=== PATIENT | female | born 1975 | race Caucasian/White ===

== ENCOUNTER 2018-06-13 13:42 | Emergency (ER) | payer SELFPAY ==
[2018-06-13] MEDS ORDERED: SODIUM CHLORIDE 1,000 ML IV SCH (14:00)
[2018-06-13 14:01] VITALS: PULSE 82
[2018-06-13 14:02] VITALS: BP 142/86; TEMP 98; BMI 28.6
[2018-06-13 14:39] LABS: BASO % 0.8 % (0-2.0); EOS % 3.1 % (0-4.5); HEMATOCRIT 40.3 % (32.4-45.2); HEMOGLOBIN 13.8 GM/dL (10.7-15.3); LYMPH % 26.6 % (8-40); MCH 29.3 pg (25.7-33.7); MCHC 34.1 g/dl (32.0-36.0); MEAN CELL VOLUME 85.8 fl (80-96); MEAN PLT VOLUME 8.6 fl (7.5-11.1); MONO % 6.3 % (3.8-10.2); NEUT % 63.2 % (42.8-82.8); PLATELET COUNT 277 K/MM3 (134-434); RDW 14.3 % (11.6-15.6); WHITE BLOOD COUNT 6.4 K/mm3 (4.0-10.0)
[2018-06-13 15:16] LABS: ALBUMIN 3.8 g/dl (3.4-5.0); ALK PHOS 140 U/L (45-117); ANION GAP 6 MMOL/L (8-16); BILIRUBIN,TOTAL 0.4 mg/dL (0.2-1); BLOOD UREA NITROGEN 9 mg/dL (7-18); CALCIUM 8.1 mg/dL (8.5-10.1); CHLORIDE 106 mmol/L (98-107); CO2 28 mmol/L (21-32); CREATININE 0.7 mg/dL (0.55-1.3); GLUCOSE,RANDOM 93 mg/dL (74-106); SGOT/AST 32 U/L (15-37); SGPT/ALT 43 U/L (13-61); SODIUM 141 mmol/L (136-145); TOT PROT 7.1 g/dl (6.4-8.2)
--- NOTE | 2018-06-13 16:11 | PDOC ---
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 She reports feeling like she is unable to respond to people, although she can hear them. She has mild nausea. She has had symptoms like this several times in the past but has not yet had a workup for them. She denies headache, chest pain, shortness of breath, or any other symptoms. Of note, the patient reports being under stress and sleeping very little because her child who is suffering from night terrors. REVIEW OF SYSTEMS: GENERAL/CONSTITUTIONAL: No fever or chills. No weakness. No weight change. HEAD, EYES, EARS, NOSE AND THROAT: No change in vision. No ear pain or discharge. No sore throat. CARDIOVASCULAR: No chest pain or palpitations. RESPIRATORY: No cough, wheezing, or shortness of breath. GASTROINTESTINAL: Nausea. No vomiting, diarrhea or constipation. GENITOURINARY: No dysuria, frequency, or change in urination. MUSCULOSKELETAL: No joint or muscle swelling or pain. No neck or back pain. SKIN: No rash or easy bruising. NEUROLOGIC: No headache, vertigo, loss of consciousness, or loss of sensation. PSYCHIATRIC: No depression or anxiety. ENDOCRINE: No increased thirst. No abnormal weight change. HEMATOLOGIC/LYMPHATIC: No anemia, easy bleeding, or history of blood clots. ALLERGIC/IMMUNOLOGIC: No hives or skin allergy. No latex allergy. PHYSICAL EXAM: GENERAL: The patient is awake, alert, and fully oriented, in no acute distress. HEAD: Normal with no signs of trauma. ENT: Pupils equal, round and reactive to light, extraocular movements intact, sclera anicteric, conjunctiva clear. Neck supple. LUNGS: Clear to auscultation bilaterally. Normal excursion. No respiratory distress or use of accessory muscles. CV: RRR, S1/S2, no MRG. Cap refill < 2 sec. ABDOMEN: Soft, non-distended, non-tender. EXTREMITIES: Normal range of motion, no edema. NEUROLOGICAL: Normal speech, normal gait. CN II-XII grossly intact. PSYCH: Normal mood, normal affect. SKIN: Warm, dry, normal turgor, no rashes or lesions noted. Past History - Past Medical History Allergies/Adverse Reactions: Allergies Allergy/AdvReac Type Severity Reaction Status Date / Time No Known Allergies Allergy Verified 06/13/18 13:54 Home Medications: Ambulatory Orders Levothyroxine Sodium [Synthroid] 137 mcg PO DAILY 06/13/18 COPD: No CHF: No HTN: Yes Thyroid Disease: Yes (hypothyroid) - Suicide/Smoking/Psychosocial Hx Smoking History: Never smoked Have you smoked in the past 12 months: No Information on smoking cessation initiated: No Hx Alcohol Use: No Drug/Substance Use Hx: No Substance Use Type: None *Physical Exam - Vital Signs Last Vital Signs Temp Pulse Resp BP Pulse Ox 98.0 F 82 16 142/86 100 06/13/18 13:42 06/13/18 13:59 06/13/18 13:42 06/13/18 13:42 06/13/18 13:59 ED Treatment Course - LABORATORY CBC & Chemistry Diagram: 06/13/18 14:05 06/13/18 14:05 - ADDITIONAL ORDERS Additional order review: Laboratory Results 06/13/18 06/13/18 06/13/18 14:08 14:08 14:05 Sodium 141 Potassium 4.0 Chloride 106 Carbon Dioxide 28 Anion Gap 6 L BUN 9 Creatinine 0.7 Creat Clearance w eGFR > 60 Random Glucose 93 Calcium 8.1 L Total Bilirubin 0.4 AST 32 ALT 43 Alkaline Phosphatase 140 H Troponin I Cancelled < 0.02 Total Protein 7.1 Albumin 3.8 TSH 2.23 Free T4 1.06 Serum , Qual Negative 06/13/18 14:05 RBC 4.70 MCV 85.8 MCHC 34.1 RDW 14.3 MPV 8.6 Neutrophils % 63.2 Lymphocytes % 26.6 Monocytes % 6.3 Eosinophils % 3.1 Basophils % 0.8 - RADIOLOGY Radiology Studies Ordered: Category Date Time Status HEAD CT WITHOUT CONTRAST [CT] Stat CT Scan 06/13/18 13:58 Completed BRAIN MRI W/O CONTRAST [MRI] Stat MRI 06/13/18 15:03 Completed Medical Decision Making - Medical Decision Making 06/13/18 16:08 A/P: 43-year-old female with nonspecific symptoms of lightheadedness, difficulty responding. 1. EKG: Normal sinus rhythm with no ST or T-wave changes 2. Labs including CBC, CMP, troponin unremarkable 3. Serum beta hCG negative 4. CT brain obtained with questionable hypodensity at left cerebellar pedicle. Follow-up MRI obtained and negative. 5. Patient reassessed and feeling "back to herself." Recommended neuro follow- up. *DC/Admit/Observation/Transfer Diagnosis at time of Disposition: Light-headed feeling, Word finding difficulty - Discharge Dispostion Disposition: HOME Condition at time of disposition: Improved Decision to Admit order: No - Referrals Referrals: Vik Penn MD [Staff Physician] - (Neurology) - Patient Instructions Printed Discharge Instructions: DI for Dizziness-Nonvertigo Additional Instructions: -Rest and stay well-hydrated -Follow up with neurology for further evaluation (referral enclosed) -Return for any new or progressive symptoms - Post Discharge Activity
--- NOTE | 2018-06-14 08:53 | EKG ---
Test Reason : Blood Pressure : / mmHG Vent. Rate : 069 BPM Atrial Rate : 069 BPM P-R Int : 164 ms QRS Dur : 086 ms QT Int : 414 ms P-R-T Axes : 068 021 052 degrees QTc Int : 443 ms NORMAL SINUS RHYTHM NORMAL ECG NO PREVIOUS ECGS AVAILABLE Confirmed by KANE PULIDO MD ([id number]) on 06/14/2018 8:52:34 AM Referred By: Confirmed By:KANE PULIDO MD
== END 2018-06-13 17:58 | disposition home or self-care (01) ==
LOC: JER 13:42
PROC: 3E0337Z Introduction of Electrolytic and Water Balance Substance into Peripheral Vein, Percutaneous Approach (ICD-10-PCS; principal; 2018-06-13)
DX: R42 Dizziness and giddiness (principal); R47.89 Other speech disturbances; I10 Essential (primary) hypertension; E03.9 Hypothyroidism, unspecified; Z91.14 Patient's other noncompliance with medication regimen
CPT/HCPCS: 36415; 70450-TC; 70551-TC; 80053; 84439; 84443; 84484; 84703; 85025; 93005; 93010; 99284-25; J7030